=== PATIENT | female | born 2005 | race Caucasian/White ===

== ENCOUNTER 2024-05-09 03:41 | Emergency (ER) | payer SELFPAY ==
[~2024-05-09] VITALS: Ht 167.6 cm; Wt 54.1 kg
[2024-05-09 03:45] VITALS: TEMP 98.4
[2024-05-09] MEDS ORDERED: NS 1,000 ML IV ONE (04:00)
[2024-05-09 04:06] LABS: BASO # 0.1 K/mm3 (0.0-0.2); BASO % 0.7 % (0.0-2.0); EOS % 0.6 % (0.0-4.0); GRAN # 4.4 K/mm3 (1.4-6.5); GRAN % 64.1 % (42.2-75.2); HEMATOCRIT 44.2 % (35.0-45.0); HEMOGLOBIN 15.7 g/dl (12.0-15.0); LYMPH # 1.8 K/mm3 (1.2-3.4); LYMPH % 26.2 % (20.0-51.0); MEAN CELL VOLUME 97 fl (80.0-95.0); MEAN CORPUSCULAR HEMOGLOBIN 34 pg (26-32); MEAN CORPUSCULAR HGB CONC 36 g/dl (33.0-37.0); MEAN PLATELET VOLUME 9.8 fl (7.4-10.4); MONO # 0.6 K/mm3 (0.1-0.6); MONO % 8.3 % (1.7-9.3); PLATELET COUNT 235 K/mm3 (130-400); RED BLOOD COUNT 4.56 M/mm3 (4.10-5.30); REDCELL DISTRIBUTION WIDTH-CV 11.3 % (11.5-14.5)
[2024-05-09 04:10] LABS: INR 1.1 (0.8-3.0); PROTHROMBIN TIME 11.6 SECONDS (9.7-12.8)
[2024-05-09 04:19] LABS: ALANINE AMINOTRANSFERASE 17 U/L (0-55); ALBUMIN 4.4 g/dL (3.5-5.0); ALKALINE PHOSPHATASE 43 U/L (40-150); ANION GAP 10 mmol/L (7-16); AST,SGOT 15 U/L (5-34); BILIRUBIN,TOTAL 1.3 mg/dL (0.2-1.2); BLOOD UREA NITROGEN 8 mg/dL (8-21); CALCIUM 9.2 mg/dL (8.4-10.2); CHLORIDE 105 mEq/L (98-107); CREATININE, serum 0.85 mg/dL (0.57-1.11); GLUCOSE 104 mg/dL (70-99); POTASSIUM 3.4 mEq/L (3.5-4.5); SODIUM 138 mEq/L (136-145); TOTAL PROTEIN 6.5 g/dl (6.2-8.1)
[2024-05-09] MEDS ORDERED: NS 50 ML IV ONE (04:19)
[2024-05-09] MEDS ORDERED: Iohexol 300 - 100 ML VIAL IV ONE (04:19)
[2024-05-09 04:26] LABS: TROPONIN-I < 0.010 ng/mL (0.00-0.033)
[2024-05-09 05:15] LABS: URINE APPEARANCE CLEAR (CLEAR/HAZY); URINE BLOOD NEGATIVE (NEGATIVE); URINE COLOR YELLOW (YELLOW); URINE GLUCOSE NEGATIVE (NEGATIVE); URINE KETONE NEGATIVE (NEGATIVE); URINE NITRATE NEGATIVE (NEGATIVE); URINE PROTEIN(semi-quant) NEGATIVE (NEGATIVE); URINE UROBILINOGEN 0.2 E.U/dL (0.2-1.0)
[2024-05-09 05:22] LABS: COLLECTION METHOD CLEAN CATCH
[2024-05-09] MEDS ORDERED: ASPIRIN E.C. 8181 MG PO (05:23)
[2024-05-09 05:34] LABS: TRICYCLIC ANTIDEPRESS URINE NEGATIVE (NEGATIVE)
[2024-05-09 05:37] VITALS: BP 105/75; PULSE 67
== END 2024-05-09 05:37 | disposition home or self-care (01) ==
LOC: COL.ER 03:41
PROVIDERS: Emergency Medicine
DX: R53.1 Weakness (principal)
CPT/HCPCS: J7030; Q9967